=== PATIENT | female | born 1940 ===

== ENCOUNTER 2016-12-09 02:46 | Inpatient (IN) | payer MEDICARE ==
[2016-12-09 02:55] VITALS: BMI 21.9
--- NOTE | 2016-12-09 02:57 | ED PDOC ---
Arrival/HPI - General Time Seen by Provider: 12/09/16 02:49 Historian: Patient, Family - History of Present Illness Narrative History of Present Illness (Text): 12/09/16 02:56 Kirstin Palma is a 76 year old female who presents to the Emergency department brought in by EMS accompanied by family status post mechanical fall prior to arrival. Patient reports, via son acting as presentation manager, she was walking at home in the dark when fell down approximately 10 stairs on to her left side. Patient now complaining of left shoulder and left hip pain. Son states patient is unable to bear weight on her left leg secondary to pain. Patient denies any loss of consciousness, head injury, chest pain, shortness of breath, nausea, vomiting, back pain, neck pain, headache, dizziness, tingling/numbness in the extremity, or any other complaints. PMD: Dr. Jacinto Orthopedist: Dr. Gorman Time/Duration: Other (tonight) Symptom Onset: Gradual Symptom Course: Unchanged Context: Walking, Home, Tripped Past Medical History - Provider Review Nursing Documentation Reviewed: Yes Family/Social History - Physician Review Nursing Documentation Reviewed: Yes Family/Social History: Unknown Family HX Allergies/Home Meds Allergies/Adverse Reactions: Allergies No Known Allergies Allergy (Verified 12/09/16 02:55) Home Medications: Home Meds Medication Instructions Recorded Confirmed No Known Home Med 12/09/16 12/09/16 Review of Systems - Physician Review All systems were reviewed & negative as marked: Yes - Review of Systems Constitutional: Normal. absent: Fevers Eyes: Normal ENT: Normal Respiratory: Normal. absent: SOB, Cough Cardiovascular: Normal. absent: Chest Pain, Syncope Gastrointestinal: Normal. absent: Abdominal Pain, Diarrhea, Nausea, Vomiting Genitourinary Female: Normal. absent: Dysuria, Frequency, Hematuria, Urine Output Changes Musculoskeletal: Arthralgias (+left hip pain, +left shoulder pain) Skin: Normal. absent: Rash Neurological: Normal. absent: Headache, Dizziness Endocrine: Normal Hemo/Lymphatic: Normal Psychiatric: Normal Physical Exam Vital Signs Reviewed: Yes Vital Signs Temp Pulse Resp BP Pulse Ox 12/09/16 05:01 75 18 132/69 97 12/09/16 02:59 98.7 F 83 18 151/73 H 97 Temperature: Afebrile Blood Pressure: Normal Pulse: Regular Respiratory Rate: Normal Appearance: Positive for: Well-Appearing, Non-Toxic, Comfortable Pain Distress: None Mental Status: Positive for: Alert and Oriented X 3 - Systems Exam Head: Present: Atraumatic, Normocephalic Pupils: Present: PERRL Extroacular Muscles: Present: EOMI Conjunctiva: Present: Normal Mouth: Present: Moist Mucous Membranes Neck: Present: Normal Range of Motion. No: Meningeal Signs, MIDLINE TENDERNESS , Paraspinal Tenderness Respiratory/Chest: Present: Clear to Auscultation, Good Air Exchange. No: Respiratory Distress, Accessory Muscle Use Cardiovascular: Present: Regular Rate and Rhythm, Normal S1, S2. No: Murmurs Abdomen: Present: Normal Bowel Sounds. No: Tenderness, Distention, Peritoneal Signs Upper Extremity: Present: Tenderness (Tenderness over left shoulder), Neurovascularly Intact, Capillary Refill < 2s. No: Cyanosis, Edema, Swelling, Temperature Abnormalties, Deformity Lower Extremity: Present: Tenderness (Tenderness over left hip), Neurovascularly Intact, Capillary Refill < 2 s. No: Edema, Cyanosis, Swelling, Temperature Abnormalties Neurological: Present: GCS=15, CN II-XII Intact, Speech Normal Skin: Present: Warm, Dry, Normal Color. No: Rashes Psychiatric: Present: Alert, Oriented x 3, Normal Insight, Normal Concentration Medical Decision Making ED Course and Treatment: 12/09/16 02:56 Impression: 76 year old female presents s/p mechanical fall with left shoulder and left hip pain. Differential Diagnosis include but are not limited to: fracture vs. strain Plan: -- XR Left Hip -- XR Left Shoulder -- Morphine -- Reassess and disposition Progress Notes: 12/09/16 03:49 Reviewed radiology, XR Left Shoulder shows fracture of the clavicle. EKG, Chest X-ray, labs, troponin ordered. 12/09/16 04:18 Reviewed EKG, NSR at 60 bpm[address] Non-specific ST/T wave changes. 12/09/16 05:01 RN reports pt is still experiencing pain. Dilaudid ordered. 12/09/16 05:[address] Ordonez, who is aware and agrees with plan. Accepts pt in to his service. Pt will go to [facility] observation for clavicle fracture and hip fracture. Discussed results and hospital observation plan with pt and family, who are aware and verbalize understanding. - Lab Interpretations Lab Results: 12/09/16 03:15 12/09/16 03:15 Lab Results 12/10/16 06:45: TSH 3rd Generation 0.13 L 12/10/16 06:45: Hemoglobin A1c 5.6 12/10/16 06:45: Triglycerides 118, Cholesterol 143, LDL Cholesterol Direct 76, HDL Cholesterol 47 12/09/16 03:15: Sodium 143, Potassium 4.0, Chloride 107, Carbon Dioxide 30, Anion Gap 10, BUN 10, Creatinine 0.6, Est GFR ( Amer) > 60, Est GFR (Non- Af Amer) > 60, Random Glucose 130 H, Calcium 8.6, Total Bilirubin 0.3, AST 50 H , ALT 33, Alkaline Phosphatase 75, Troponin I < 0.01, Total Protein 7.0, Albumin 3.5, Globulin 3.5, Albumin/Globulin Ratio 1.0 L 12/09/16 03:15: PT 11.1, INR 1.03, APTT 26.4 12/09/16 03:15: WBC 11.9 H, RBC 3.43 L, Hgb 12.4, Hct 36.9, MCV 107.6 H, MCH 36.2 H, MCHC 33.6, RDW 21.3 H, Plt Count 338, MPV 10.5, Gran % 68.3 H, Lymph % ( Auto) 14.8 L, [place] % (Auto) 4.2, Eos % (Auto) 12.4 H, Baso % (Auto) 0.3, Gran # 8.12 H, Lymph # 1.8, [place] # 0.5, Eos # 1.5 H, Baso # 0.03 I have reviewed the lab results: Yes - RAD Interpretation Radiology Orders: 12/09/16 02:58 Hip Left [HIP MIN 4V W/ PELVIS LT] [RAD] Stat SHOULDER LEFT [RAD] Stat 12/09/16 03:51 CHEST PORTABLE [RAD] Stat 12/10/16 08:18 EXT UPPER W/O CONTRAST LEFT [CT] Routine [employer] Erector: ED Physician - EKG Interpretation Interpreted by ED Physician: Yes Type: 12 lead EKG - Medication Orders Current Medication Orders: Enoxaparin Sodium (Lovenox) 40 mg SC DAILY JOEL PRN Reason: Protocol Last Admin: 12/10/16 10:03 Dose: 40 mg Metoprolol Tartrate (Lopressor) 25 mg PO BID [facility] Last Admin: 12/10/16 18:31 Dose: 25 mg Morphine Sulfate (Morphine) 2 mg IVP Q4H PRN PRN Reason: Pain, moderate (4-7) Last Admin: 12/09/16 15:47 Dose: 2 mg Oxycodone/Acetaminophen (Percocet 5/325 Mg Tab) 1 tab PO Q4H PRN PRN Reason: Pain, moderate (4-7) Stop: 12/12/16 08:30 Last Admin: 12/10/16 15:56 Dose: 1 tab Re-Assess: [facility] Pain Assessment Document 12/10/16 16:56 MCV (Rec: 12/10/16 18:27 MCV [id number] Pain Reassessment Is this a pain reassessment? Yes Sleep Is patient sleeping during reassessment? Yes Pain Scale Used Pain Scale Used Alexandra Pantoprazole Sodium (Protonix Ec Tab) 40 mg PO ACB [facility] Last Admin: 12/10/16 08:46 Dose: Not Given Non-Admin Reason: Patient Refused Discontinued Medications Hydromorphone HCl (Dilaudid) 1 mg IVP STAT STA Stop: 12/09/16 05:02 Last Admin: 12/09/16 05:09 Dose: 1 mg Sodium Chloride (Sodium Chloride 0.9%) 1,000 mls @ 100 mls/hr IV .Q10H STA Stop: 12/09/16 15:33 Last Admin: 12/09/16 05:44 Dose: 100 mls/hr Morphine Sulfate (Morphine) 2 mg IVP STAT STA Stop: 12/09/16 02:59 Last Admin: 12/09/16 03:21 Dose: 2 mg Re-Assess: [facility] Pain Assessment Document 12/09/16 04:21 RD (Rec: 12/09/16 05:10 RD [id number]) Pain Reassessment Is this a pain reassessment? Yes Sleep Is patient sleeping during reassessment? No Presence of Pain Presence of Pain Yes - Scribe Statement The provider has reviewed the documentation as recorded by the Scribe Rosita Ulrich All medical record entries made by the Scribe were at my direction and personally dictated by me. I have reviewed the chart and agree that the record accurately reflects my personal performance of the history, physical exam, medical decision making, and the department course for this patient. I have also personally directed, reviewed, and agree with the discharge instructions and disposition. Disposition/Present on Arrival - Present on Arrival Any Indicators Present on Arrival: No - Disposition Have Diagnosis and Disposition been Completed?: Yes Diagnosis: Clavicle fracture, Hip pain Disposition: HOSPITALIZED Disposition Time: 05:20 Condition: FAIR
[2016-12-09] MEDS ORDERED: Morphine 2 mg/ml ISec IVP STA (02:58)
[2016-12-09 04:02] LABS: ADD MANUAL DIFF? NO
[2016-12-09 04:14] LABS: ALKALINE PHOSPHATASE 75 U/L (38-133); ALT/SGPT 33 U/L (7-56); AST/SGOT 50 U/L (15-39); BILIRUBIN,TOTAL 0.3 mg/dL (0.2-1.3); BLOOD UREA NITROGEN 10 mg/dL (7-21); CALCIUM 8.6 mg/dL (8.4-10.5); CARBON DIOXIDE 30 mmol/L (21-33); CHLORIDE 107 mmol/L (98-107); GFR AFRICAN-AMERICAN > 60; GLUCOSE,RANDOM 130 mg/dL (70-110); SODIUM 143 mmol/L (132-148)
[2016-12-09 04:16] LABS: HEMATOCRIT 36.9 % (36.0-48.0); MEAN CELL VOLUME 107.6 fL (80.0-105.0); MEAN CORPUSCULAR HEMOGLOBIN 36.2 pg (25.0-35.0); MEAN CORPUSCULAR HGB CONC 33.6 g/dl (31.0-37.0); WHITE BLOOD COUNT 11.9 10^3/ul (4.5-11.0)
[2016-12-09 04:17] LABS: BASO # 0.03 K/mm3 (0.0-2.0); BASO % 0.3 % (0.0-3.0); EOS # 1.5 (0.0-0.7); EOS % 12.4 % (1.5-5.0); GRAN # 8.12 (1.4-6.5); GRAN % 68.3 % (50.0-68.0); LYMPH # 1.8 (1.2-3.4); LYMPH % 14.8 % (22.0-35.0); MEAN PLATELET VOLUME 10.5 fl (7.0-11.0); MONO # 0.5 (0.1-0.6); MONO % 4.2 % (1.0-6.0); PLATELET COUNT 338 10^3/uL (120.0-450.0); RED CELL DISTRIBUTION WIDTH 21.3 % (11.5-14.5)
[2016-12-09 04:21] LABS: INR 1.03 (0.93-1.08); PARTIAL THROMBOPLASTIN TIME 26.4 Seconds (23.7-30.8)
[2016-12-09 04:31] LABS: TROPONIN I < 0.01 ng/mL
[2016-12-09] MEDS ORDERED: HYDROmorphone 1 mg/ml ISec IVP STA (05:01)
[2016-12-09] MEDS ORDERED: Sodium Chloride 0.9% 1,000 ML IV STA (05:34)
--- NOTE | 2016-12-09 08:04 | RAD ---
HISTORY: fall COMPARISON: No prior. FINDINGS: LUNGS: No active pulmonary disease. PLEURA: No significant pleural effusion identified, no pneumothorax apparent. CARDIOVASCULAR: Normal. OSSEOUS STRUCTURES: There is a oblique fracture through the distal left clavicle VISUALIZED UPPER ABDOMEN: Normal. OTHER FINDINGS: None. IMPRESSION: Fracture of the left distal clavicle. No active disease in the chest
--- NOTE | 2016-12-09 08:06 | RAD ---
PROCEDURE: Radiographs of the Left Shoulder HISTORY: fall COMPARISON: No prior. FINDINGS: BONES: There is a comminuted fracture of the left distal clavicle JOINTS: Normal. Glenohumeral and acromioclavicular joints preserved. No osteoarthritis. SOFT TISSUES: Normal. OTHER FINDINGS: None. IMPRESSION: Comminuted fracture of the left distal clavicle
--- NOTE | 2016-12-09 08:07 | RAD ---
PROCEDURE: Left Hip and pelvis X-ray Radiographs. HISTORY: fall COMPARISON: None. 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 There is heterotopic bone superior to the prosthesis. There is no evidence of acute fracture JOINTS: Normal. SOFT TISSUES: Normal. OTHER FINDINGS: None. IMPRESSION: No acute findings
[2016-12-09] MEDS: Pantoprazole 40 mg EC Tab PO SCH (09:45)
--- NOTE | 2016-12-09 09:50 | CON ---
DATE: 12/09/2016 A 76-year-old female in room 572, bed 2. The patient is a 76-year-old female who sustained a fall last night, early in the morning when walkin g down the stairs without a light and tripped and fell and sustained a displaced fracture distal left clavicle. 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 When I saw her in bed today, she moves the hips well, both of them. The left shoulder i s swollen and painful to touch because of the displaced distal clavicle fracture and she says the hip does not hurt her. It is the shoulder that gives her pain, but she does not need surgery today. We will see how she does because she does need a medical workup to find out why she fell, so I am going to have Dr. Hernandez see the patient cardiac boateng to make sure there is no underlying reason for her syn cope or fall and she could be discharged if she could ambulate with a cane because she cannot use a w alker because of the left shoulder. So I am going to get a sling on the left shoulder and hopefully Dr. Hernandez can evaluate her and that she can safely go home in a day or two and I will follow her in [facility] office. If any surgery is needed on the shoulder, we could do it electively, not urgently and we w ill see how she performs with a week of rest and then reevaluate her in the office. FINAL DIAGNOSIS: Displaced left distal clavicle fracture that may need surgical intervention if frac emiliano does not heal or do well, but the left hip does not need surgery and she can get up out of bed, ambulate with no cane and hopefully go home in a couple of days when she is seen medically by the doc tors, including Dr. Hernandez. Chuck Gorman DO cc: [id number] TT: 12/09/2016 09:49:24 Confirmation # [id number] Dictation # [id number] en
[2016-12-09] MEDS: Enoxaparin 40 mg Syringe SC SCH (10:19)
[2016-12-09] MEDS: Oxycodone/Acetaminophen 5/325 mg Tab PO PRN (11:27)
[2016-12-09] MEDS: Morphine 2 mg/ml ISec IVP PRN (15:47)
--- NOTE | 2016-12-09 17:01 | CON ---
DATE: 12/09/2016 REASON FOR CONSULTATION: Preop evaluation and risk stratification for possible OR, status post fall and fracture of hip and clavicle. BRIEF CLINICAL HISTORY: This is a 76-year-old female with no significant past medical history with a mechanical fall. The patient says that it was night and the room was dark so rather than going stra ight going to the room went in the room and fell down and sustained a hip fracture and a shoulder fra cture. Denies any chest pain, shortness of breath, any palpitation. The patient is being followed b y Dr. Rafa Matamoros. Denies any chest pain or shortness of breath prior to her fall. PAST MEDICAL HISTORY: Not significant for CAD, diabetes. SOCIAL HISTORY: Denies any history of alcohol abuse. CURRENT MEDICATIONS: Unobtainable at home. REVIEW OF SYSTEMS: As per HPI. PHYSICAL EXAMINATION: VITAL SIGNS: Temperature afebrile, heart rate , blood pressure 132/ . HEENT: PERRLA. Extraocular muscles intact. NECK: Supple. No carotid bruits. No thyromegaly. CHEST: Clear to auscultation. HEART: S1, S2 regular. ABDOMEN: Soft. EXTREMITIES: Clubbing and cyanosis negative. EKG shows normal sinus at a rate of 82. LABORATORY DATA: Blood workup as follows: WBC , hemoglobin 12.4, hematocrit 36.9, platelet cou nt 338. Chemistry shows sodium 143, potassium 4, chloride 107, carbon dioxide 30, anion gap of 10, B UN 10, creatinine 0.6. Troponin negative. IMPRESSION: Status post mechanical fall, fracture of hip, fracture of shoulder, no history of diabet es, hypertension, hyperlipidemia in the past. No history of documented coronary artery disease. RECOMMENDATION: The patient is a moderate risk because of underlying comorbidity, but no absolute co ntraindication for surgery. The patient is okay to go with moderate risk, but no absolute contraindi cation. Suggest perioperative beta joshua and will follow with you. Thank you, Dr. Gorman, for providing me the opportunity in taking care of the patient. Davy Hernandez MD cc: [id number] TT: 12/09/2016 17:00:22 Confirmation # [id number] Dictation # [id number] dn
--- NOTE | 2016-12-10 01:10 | CARD ---
APPROVED REPORT EKG Measurement Heart [id number] NC 172P47 [id number] <Conclusion> Normal sinus rhythm Normal ECG
--- NOTE | 2016-12-10 01:14 | CARD ---
APPROVED REPORT EKG Measurement Heart [id number] FL 170P28 [id number] <Conclusion> Normal sinus rhythm Septal infarct, age undetermined Abnormal ECG
[2016-12-10] MEDS: Oxycodone/Acetaminophen 5/325 mg Tab PO PRN ×2 (03:00→15:56)
[2016-12-10 07:28] LABS: CHOLESTEROL 143 mg/dL (130-200)
[2016-12-10] MEDS: Pantoprazole 40 mg EC Tab PO SCH (08:46)
--- NOTE | 2016-12-10 09:10 | PN ---
DATE: 12/10/2016 The patient is with a displaced fracture of the left distal clavicle. The swelling is less. She is contemplating surgery with the idea that if she has it fixed the pain will be less and she can do mor e work at home because she has to take care of her . So I am going to get a CAT scan of her l eft shoulder to see if it has the potential to heal. If not, she would need some surgical procedure to stabilize that fracture, so I am going to order a CAT scan and I will reevaluate her after the CAT scan, and I will talk to the family. Chuck Gorman DO cc: [id number] TT: 12/10/2016 09:09:52 Confirmation # [id number] Dictation # [id number] krishna
[2016-12-10] MEDS: Enoxaparin 40 mg Syringe SC SCH (10:03)
--- NOTE | 2016-12-10 10:58 | CT ---
PROCEDURE: CT of the Left clavicle. HISTORY: pre op fx lt distal clavicle COMPARISON: None available. TECHNIQUE: Contiguous axial images of the left hip were obtained. Coronal and sagittal reformats were generated. Radiation dose of 191.[address] exam was performed using one or more of the following dose reduction techniques: Automated exposure control, adjustment of the mA and/or kV according to patient size, and/or use of iterative reconstruction technique. FINDINGS: BONES: Comminuted fracture of the distal clavicle with associated surrounding soft tissue swelling. Femoral head maintains normal contour. LEFT JOINT: Unremarkable. No dislocation. No degenerative changes. SOFT TISSUES: Unremarkable. IMPRESSION: Comminuted fracture of the distal clavicle.
--- NOTE | 2016-12-10 12:40 | HP ---
A 76-year-old female, came in with a fall, fractured her left clavicle, possible left hip, admitted f or observation. HISTORY OF PRESENT ILLNESS: The patient is a 76-year-old female. She takes aspirin for previous str lila and high cholesterol. Otherwise, she lives by herself. No other complaint. She came into the ospital because she fell. She tripped over. There is no dizziness, no chest pain, no palpitations, n o history of cardiac disease. She tripped over, resulting in left clavicular area pain, left hip phoebe n. Came in for ER evaluation, found to have left clavicle fractures, no other fractures. The patien t was admitted for observation. PAST MEDICAL HISTORY: As I mentioned before, history of right side leg weakness from a stroke before a few years ago, high cholesterol, otherwise negative. ALLERGIES: No known allergies. SOCIAL HISTORY: Does not smoke, does not drink. She quit smoking many years ago. REVIEW OF SYSTEMS: As in the present illness, she does have difficult ambulation, right leg weakness , but she is able to manage at home with her basic daily activities. She goes to the bathroom, she w alks around. Otherwise negative. PHYSICAL EXAMINATION: On day of admission, 12/09/2016: VITAL SIGNS: Temperature 98.7, heart rate 83, blood pressure 151/73, respirations 18, saturation 97% . HEAD AND NECK: Normal. No JVD, no thyromegaly. CHEST: Clear, good air entry. CARDIAC: First sound, second sound normal. ABDOMEN: Soft, nontender. EXTREMITIES: No edema. NEUROLOGIC: She moves all extremities and she is alert, awake, oriented. LABORATORY STUDIES: White count 11.9, hemoglobin 12.4, hematocrit 36.9, platelets 338. Chemistry no biju for sodium 143, potassium 4, chloride 107, bicarb 30, BUN 10, creatinine 0.6, blood sugar 130, ca lcium 8.6, total bilirubin is 0.3, AST 50, ALT is normal, alk phos is normal. Troponin was negative, 0.01. Albumin, globulin normal. IMPRESSION AND PLAN: Status post fall, negative cardiac enzymes. The patient also had a CT of the _ ____ and she had x-rays which shows comminuted fracture of left distal clavicle. She also had a hip x-ray, which shows a prosthetic there or prosthesis and there is left hip prosthesis. There is atrop hic bone superior to prosthesis, no evidence of acute fractures. She also had a chest x-ray, which s howed no active pulmonary disease. She also had electrocardiogram, shows normal sinus rhythm, normal EKG. We will admit the patient for observation. We will get orthopedic consult. We will give jia rointestinal and deep venous thrombosis prophylaxis. regular diet for now. We will see what t he orthopedic recommends. If surgery, patient seems hesitant to do any surgery at this time. Deneen arzate, we will see how her functionality will be. We will continue current therapy. Consider also physi valdo therapy. Miles Ordonez MD cc: [phone] TT: 12/10/2016 12:40:07 en
--- NOTE | 2016-12-10 16:47 | PN ---
DATE: 12/10/2016 It is about 3:30. I saw her this morning. We ordered a CAT scan of her left distal clavicle fractur e, which just came back and I see the CAT scan shows there is a highly comminuted fracture that did n ot show itself on the plain x-ray and the bones are only mm apart, so we are going to avoid surgery t o keep it together while she is followed at a subacute rehab. We got to keep a constant sling on her left shoulder because there is a 90% chance the fracture will heal without surgery because the surge ry for this fracture would be quite extensive, a high rate of failure and high rate of infection, so we will try to get primary union with conservative therapy and maybe in 6 weeks if it is not healing, we could give her a bone stimulator, which works fairly well with this too, so the treatment now lauryn l be a left shoulder sling, no weight on the left shoulder and to follow while she is in the rehab [facility] and it can take 6-8 weeks to heal. So, there is no surgery planned. She can go to subacute r ehab whenever medically she is stable. Chuck Gorman DO cc: [id number] TT: 12/10/2016 16:46:28 Confirmation # [id number] Dictation # [id number] en
[2016-12-11] MEDS: Morphine 2 mg/ml ISec IVP PRN (01:57)
[2016-12-11 08:18] VITALS: O2SAT 92
[2016-12-11] MEDS: Pantoprazole 40 mg EC Tab PO SCH (08:26)
[2016-12-11] MEDS: Enoxaparin 40 mg Syringe SC SCH (10:34)
[2016-12-11] MEDS: Oxycodone/Acetaminophen 5/325 mg Tab PO PRN (14:46)
[2016-12-11 16:25] VITALS: BP 139/76; PULSE 94; RESP 20; TEMP 98.9
--- NOTE | 2016-12-11 23:47 | CP.PCM.PN ---
Subjective - Date & Time of Evaluation Date of Evaluation: 12/11/16 Time of Evaluation: 12:00 - Subjective Subjective: Kirstin Palma is a 76 year old female who presents to the Emergency department brought in by EMS accompanied by family status post mechanical fall prior to arrival. Patient reports, via son acting as customer relationship specialist, she was walking at home in the dark when fell down approximately 10 stairs on to her left side. Patient now complaining of left shoulder and left hip pain. Son states patient is unable to bear weight on her left leg secondary to pain. Patient denies any loss of consciousness, head injury, chest pain, shortness of breath, nausea, vomiting, back pain, neck pain, headache, dizziness, tingling/numbness in the extremity, or any other complaints. out of bed to chair, fond to have clavical fracture, Objective - Vital Signs/Intake and Output Vital Signs (last 24 hours): Temp Pulse Resp BP Pulse Ox 98.9 F 94 H 20 139/76 92 L 12/11/16 16:00 12/11/16 17:15 12/11/16 16:00 12/11/16 17:15 12/11/16 16:00 Intake and Output: 12/11/16 12/12/16 18:59 06:59 Intake Total 600 Balance 600 - Labs Labs: PT 11.1 Seconds (9.9-11.8) 12/09/16 03:15 INR 1.03 (0.93-1.08) 12/09/16 03:15 APTT 26.4 Seconds (23.7-30.8) 12/09/16 03:15 - Constitutional Appears: No Acute Distress - Head Exam Head Exam: ATRAUMATIC, NORMAL INSPECTION, NORMOCEPHALIC - Eye Exam Eye Exam: EOMI, Normal appearance, PERRL - ENT Exam ENT Exam: Mucous Membranes Moist, Normal Exam - Neck Exam Neck Exam: Full ROM, Normal Inspection. absent: Lymphadenopathy - Respiratory Exam Respiratory Exam: Clear to Ausculation Bilateral, Wheezes, NORMAL BREATHING PATTERN - Cardiovascular Exam Cardiovascular Exam: REGULAR RHYTHM, +S1, +S2. absent: Murmur - Extremities Exam Additional comments: left upper ext. in sling Assessment and Plan (1) COPD (chronic obstructive pulmonary disease) Status: Acute (2) DJD (degenerative joint disease) Status: Acute (3) Clavicle fracture Status: Acute (4) Hip pain Status: Acute - Assessment and Plan (Free Text) Plan: pain meds fall precaution physical therapy orthopadic consult
--- NOTE | 2016-12-12 08:41 | CARD ---
APPROVED REPORT EXAM: Two-dimensional and M-mode echocardiogram with Doppler and color Doppler. INDICATION PRE-OP 2D DIMENSIONS Left Atrium (2D)4.0 (1.6-4.0cm)IVSd1.0 (0.7-1.1cm) LVDd4.4 (3.9-5.9cm)PWd1.2 (0.7-1.1cm) LVDs2.9 (2.5-4.0cm)FS (%) 34.7 % LVEF (%)64.2 (>50%) M-Mode DIMENSIONS Aortic Root2.80 (2.2-3.7cm)Aortic Cusp Exc.1.10 (1.5-2.0cm) Aortic Valve AoV Peak Zamjasec306.0cm/Dennise Peak GR.18mmHg Mitral Valve MV E Cumfdfcv780.0cm/sMV A Dhnlybrk974.0cm/sMV PXE990ni E/A ratio0.7MVA (PHT)1.91cm2 TDI E/Lateral E'0.0E/Medial E'0.0 Tricuspid Valve TR Peak [id number]/sRAP [id number] Peak Gr.39mmHg STRT37xxPa LEFT VENTRICLE The left ventricle is normal size. There is mild concentric left ventricular hypertrophy. The left ventricular function is normal.EF-60-65% There is normal LV segmental wall motion. Transmitral Doppler flow pattern is Grade III-reversible restrictive diastolic dysfunction. No left ventricle thrombus noted on this study. There is no ventricular septal defect visualized. There is no left ventricular aneurysm. There is no mass noted in the left ventricle. RIGHT VENTRICLE The right ventricle is normal size. There is normal right ventricular wall thickness. The right ventricular systolic function is normal. ATRIA The left atrium is borderline dilated. The right atrium size is normal. The interatrial septum is intact with no evidence for an atrial septal defect. AORTIC VALVE The aortic valve is calcified and displays decreased opening. No aortic regurgitation is present. There is mild valvular aortic stenosis. There is no aortic valvular vegetation. MITRAL VALVE The mitral valve is calcified and displays decreased opening. Mitral annular calcification is moderate. Mitral regurgitation is traceto mild. There is mild mitral valve stenosis.MVA 1.9cm2 There is no evidence of mitral valve prolapse. TRICUSPID VALVE The tricuspid valve leaflets are thickened , but open well. There is mild to moderate tricuspid regurgitation. There is no tricuspid valve stenosis. There is no tricuspid valve prolapse or vegetation. PULMONIC VALVE The pulmonic valve is not well visualized. There is no pulmonic valvular regurgitation. There is no pulmonic valvular stenosis. GREAT VESSELS The aortic root is normal in size. The ascending aorta is normal in size. The pulmonary artery is normal. The IVC is normal in size and collapses >50% with inspiration. PERICARDIAL EFFUSION There is no pleural effusion. There is no pericardial effusion. Anterior Percardial Pad of Fat noted <Conclusion> The left ventricle is normal size. There is mild concentric left ventricular hypertrophy. The left ventricular function is normal.EF-60-65% There is mild valvular aortic stenosis. Mitral regurgitation is traceto mild. There is mild mitral valve stenosis.MVA 1.9cm2 There is mild to moderate tricuspid regurgitation. The IVC is normal in size and collapses >50% with inspiration. There is no pericardial effusion. Anterior Percardial Pad of Fat noted
== END 2016-12-11 19:29 | DRG 563 ==
LOC: ED 02:46 → ERH 05:21 → 5RSO 06:54 → OBSVTOIN 12-10 16:18
PROVIDERS: ADMIT Internal Medicine; ATTEND Internal Medicine
DX: S42.032A Displaced fracture of lateral end of left clavicle, initial encounter for closed fracture (principal); I69.351 Hemiplegia and hemiparesis following cerebral infarction affecting right dominant side; S70.02XA Contusion of left hip, initial encounter; J44.9 Chronic obstructive pulmonary disease, unspecified; M19.90 Unspecified osteoarthritis, unspecified site; E78.00 Pure hypercholesterolemia, unspecified; W10.8XXA Fall (on) (from) other stairs and steps, initial encounter; Y93.01 Activity, walking, marching and hiking; Y92.098 Other place in other non-institutional residence as the place of occurrence of the external cause; Z87.891 Personal history of nicotine dependence; Z79.82 Long term (current) use of aspirin

== ENCOUNTER 2018-10-04 20:46 | Emergency (ER) | payer MEDICARE, OTHER ==
--- NOTE | 2018-10-04 21:23 | ED PDOC ---
Arrival/HPI - General Chief Complaint: Hip Pain Time Seen by Provider: 10/04/18 21:17 Historian: Patient, Family - History of Present Illness Narrative History of Present Illness (Text): 10/04/18 21:22 Kirstin Palma is a 77 year old female, whose past medical history includes TIA with residual right leg weakness, hyperlipidemia, and left hip replacement, who presents to the ED accompanied by son status post mechanical fall. Patient states, as per son acting mandarin tutor, she tripped and fell down 3 steps this evening, landing on her right side. Patient now complaining of right hip/groin pain, worse with movement. Patient denies any chest pain, shortness of breath, abdominal pain, nausea, vomiting, headache, dizziness, other trauma/injury, or any other complaints. Symptom Onset: Gradual Symptom Course: Unchanged Activities at Onset: Light Context: Home Past Medical History - Provider Review Nursing Documentation Reviewed: Yes - Infectious Disease Hx of Infectious Diseases: None - Cardiac Hx Hypertension: Yes Other/Comment: Cardiac Stents Placement, PAtient unsure of year. - Pulmonary Hx Respiratory Disorders: No - Neurological HX Cerebrovascular Accident: Yes (8 months ago, no deficits) - HEENT Hx HEENT Disorder: No - Renal Hx Renal Disorder: No - Endocrine/Metabolic Hx Endocrine Disorders: No - Hematological/Oncological Hx Blood Disorders: No - Integumentary Hx Dermatological Disorder: No - Musculoskeletal/Rheumatological Hx Falls: Yes - Gastrointestinal Hx Gastrointestinal Disorders: No - Genitourinary/Gynecological Hx Genitourinary Disorders: No - Psychiatric Hx Psychophysiologic Disorder: No Hx Substance Use: No - Surgical History Other/Comment: Left Total Hip replacement. - Anesthesia Hx Anesthesia: Yes Hx Anesthesia Reactions: No Hx Malignant Hyperthermia: No Family/Social History - Physician Review Nursing Documentation Reviewed: Yes Family/Social History: Unknown Family HX Smoking Status: Former Smoker Hx Alcohol Use: No Hx Substance Use: No Allergies/Home Meds Allergies/Adverse Reactions: Allergies No Known Allergies Allergy (Verified 10/04/18 20:58) Review of Systems - Physician Review All systems were reviewed & negative as marked: Yes - Review of Systems Constitutional: Normal. absent: Fevers Eyes: Normal ENT: Normal Respiratory: Normal. absent: SOB, Cough Cardiovascular: Normal. absent: Chest Pain Gastrointestinal: Normal. absent: Abdominal Pain, Diarrhea, Nausea, Vomiting Genitourinary Female: Normal. absent: Dysuria, Frequency, Hematuria, Urine Output Changes Musculoskeletal: Arthralgias (+right hip/groin pain). absent: Back Pain, Neck Pain Skin: Normal. absent: Rash Neurological: Normal. absent: Headache, Dizziness Endocrine: Normal Hemo/Lymphatic: Normal Psychiatric: Normal Physical Exam Vital Signs Reviewed: Yes Vital Signs Temp Pulse Resp BP Pulse Ox 10/04/18 20:58 98.8 F 96 H 18 125/71 95 Temperature: Afebrile Blood Pressure: Normal Pulse: Regular Respiratory Rate: Normal Appearance: Positive for: Well-Appearing, Non-Toxic, Comfortable Pain Distress: None Mental Status: Positive for: Alert and Oriented X 3 - Systems Exam Head: Present: Atraumatic, Normocephalic Pupils: Present: PERRL Extroacular Muscles: Present: EOMI Conjunctiva: Present: Normal Mouth: Present: Moist Mucous Membranes Neck: Present: Normal Range of Motion Respiratory/Chest: Present: Clear to Auscultation, Good Air Exchange. No: Respiratory Distress, Accessory Muscle Use Cardiovascular: Present: Regular Rate and Rhythm, Normal S1, S2. No: Murmurs Abdomen: No: Tenderness, Distention, Peritoneal Signs Back: Present: Normal Inspection Upper Extremity: Present: Normal Inspection. No: Cyanosis, Edema Lower Extremity: Present: Tenderness (Minimal tenderness with flexion of right hip/groin), Other (Small superficial abrasion to anterior right lower leg.). No: Edema Neurological: Present: GCS=15, CN II-XII Intact, Speech Normal Skin: Present: Warm, Dry, Normal Color. No: Rashes Psychiatric: Present: Alert, Oriented x 3, Normal Insight, Normal Concentration Medical Decision Making ED Course and Treatment: 10/04/18 21:22 Impression: 77 year old female presents s/p fall with right hip/groin pain. Plan: -- CT Right Lower Extremity -- XR Pelvis -- Ultracet -- Reassess and disposition Prior Visits: Notes and results from previous visits were reviewed. Progress Notes: 10/05/18 00:15 Reviewed radiology, XR Pelvis shows no acute fracture. BONES: At the proximal femoral diaphysis there is a well defined, expansile, lytic lesion with some peripheral calcification sclerosis, measuring 2.0 cm craniocaudally by 0.8 cm transverse by 1.0 cm AP, appreciable along the posterior cortex. This is best seen near series 602, image 48-49. It is also appreciable on axial images for example near series 2, image 92. This could have benign or malignant etiologies. Please correlate clinically and if indicated this could be correlated with plain radiographs, MRI, or bone scan. No evidence for acute fracture or subluxation in the visualized portions of the right femur, right hip or right knee. Crm Coordinator radiograph demonstrates a left hip prosthesis which appears in near anatomic position. JOINTS: Mild degenerative changes are present at the hip. The visualized lower lumbosacral spine demonstrates moderate to severe degenerative changes. There are also moderate degenerative changes at the right sacroiliac joint. SOFT TISSUES: Incidentally noted moderate atherosclerotic calcification of the common iliac arteries and a right internal iliac artery. MISCELLANEOUS: Questionable rectal wall thickening versus underdistention. Please correlate clinically and if indicated followup can be obtained. Incidentally noted right lower pole renal cyst. Normal appendix in the right lower quadrant. Moderate constipation is noted in the visualized right colon. Mild sigmoid diverticulosis is seen. IMPRESSION: 1. At the proximal femoral diaphysis there is a well defined, expansile, lytic lesion with some peripheral calcification sclerosis, measuring 2.0 cm craniocaudally by 0.8 cm transverse by 1.0 cm AP, appreciable along the posterior cortex. This is best seen near series 602, image 48-49. It is also appreciable on axial images for example near series 2, image 92. This could have benign or malignant etiologies. Please correlate clinically and if indicated this could be correlated with plain radiographs, MRI, or bone scan. 2. No evidence for acute fracture or subluxation in the visualized portions of t he right femur, right hip or right knee. 3. Mild degenerative changes are present at the hip. The visualized lower lumbosacral spine demonstrates moderate to severe degenerative changes. There are also moderate degenerative changes at the right sacroiliac joint. 4. Questionable rectal wall thickening versus underdistention. Please correlate clinically and if indicated followup can be obtained. 5. Crm Coordinator radiograph demonstrates a left hip prosthesis which appears in near anatomic position. 6. Additional, incidental findings as described above. Electronically signed on Oct 05, 2018 12:06:36 AM EDT by: Ishaan Bernardo M.D., M.B.A., Certified By [employer] Trained Discussed CT scan findings with pt ad family. Son states pt will follow-up with her PMD this week regarding CT scan findings. - RAD Interpretation [employer] Supervisor: ED Physician, Radiologist - Anastasiaibe Statement The provider has reviewed the documentation as recorded by the Rhonda Ulrich Provider Scribe Attestation: All medical record entries made by the Scribe were at my direction and personally dictated by me. I have reviewed the chart and agree that the record accurately reflects my personal performance of the history, physical exam, medical decision making, and the department course for this patient. I have also personally directed, reviewed, and agree with the discharge instructions and disposition. Disposition/Present on Arrival - Present on Arrival Any Indicators Present on Arrival: No History of DVT/PE: No History of Uncontrolled Diabetes: No Urinary Catheter: No History of Decub. Ulcer: No History Surgical Site Infection Following: None - Disposition Have Diagnosis and Disposition been Completed?: Yes Diagnosis: Strain of hip and thigh, Skin abrasion Disposition: HOME/ ROUTINE Disposition Time: 00:17 Patient Plan: Discharge Patient Problems: Current Active Problems Problem Status Onset Skin abrasion Acute Strain of hip and thigh Acute Condition: GOOD Discharge Instructions (ExitCare): Muscle Strain (DC), Skin Abrasions (DC) Additional Instructions: Rest/no strenuous physical activity/take meds as prescribed/follow up with your doctor as scheduled this week also regarding incidental Cat Scan findings as explained Prescriptions: traMADol/Acetaminophen [Ultracet 325 MG-37.5 MG] 1 tab PO Q6 PRN #12 tab PRN Reason: Pain Referrals: Jamar Zapata MD [Primary Care Provider] - Follow up with primary Forms: [employer] (Emirati)
[2018-10-04] MEDS ORDERED: TraMADol/Apap 37.5/325 mg Tab PO STA (21:25)
[2018-10-04 21:37] VITALS: BP 125/71; PULSE 96; RESP 18; TEMP 98.8; O2SAT 95; BMI 22.6
--- NOTE | 2018-10-05 10:22 | CT ---
Date of service: 10/04/2018 PROCEDURE: CT of the right lower extremity HISTORY: pain right hip/right thigh post fall COMPARISON: TECHNIQUE: Radiation dose: Total exam DLP = 697 mGy-cm. This CT exam was performed using one or more of the following dose reduction techniques: Automated exposure control, adjustment of the mA and/or kV according to patient size, and/or use of iterative reconstruction technique. FINDINGS: There is a transverse impacted subcapital hip fracture on the right. This finding was not reported on the preliminary [facility] rad report. This discrepancy was discussed with Dr. Liang at 10 a.m. 10/05/2018. There is an incidental lucent cortical lesion in the posterior aspect of the upper femoral shaft which is probably benign. This is of doubtful significance. IMPRESSION: There is a transverse impacted subcapital hip fracture on the right.
--- NOTE | 2018-10-05 11:44 | RAD ---
Date of service: 10/04/2018 PROCEDURE: Pelvis three views HISTORY: fall COMPARISON: TECHNIQUE: Three views FINDINGS: There is an impacted subcapital hip fracture on the right that was confirmed on CT. There is a left hip prosthesis. The pelvis is intact IMPRESSION: Impacted subcapital hip fracture on the right
== END 2018-10-05 00:40 | disposition home or self-care (01) ==
LOC: ED 20:46
DX: S76.011A Strain of muscle, fascia and tendon of right hip, initial encounter (principal); S76.911A Strain of unspecified muscles, fascia and tendons at thigh level, right thigh, initial encounter; S80.811A Abrasion, right lower leg, initial encounter; W01.0XXA Fall on same level from slipping, tripping and stumbling without subsequent striking against object, initial encounter; I10 Essential (primary) hypertension; E78.5 Hyperlipidemia, unspecified; Z87.891 Personal history of nicotine dependence

== ENCOUNTER 2018-10-05 12:44 | Inpatient (IN) | payer MEDICARE | END 2018-10-08 21:00 | LOC: 5RNO 10-08 01:36 → ED 12:44 → ERH 18:21 → 5RNO 19:38 ==